=== PATIENT | female | born 1965 | race Caucasian/White ===

== ENCOUNTER 2021-05-24 12:06 | Emergency (ER) | payer SELFPAY ==
[~2021-05-24] VITALS: Ht 167.6 cm; Wt 70.3 kg
--- NOTE | 2021-05-24 12:06 | NUR ---
PT BIBA TO BED 04.
[2021-05-24 12:10] VITALS: BP 162/104
[2021-05-24] MEDS ORDERED: NACL 0.9% 1,000 ML IV ONE ×3 (12:15→14:10)
[2021-05-24] MEDS ORDERED: ACETAMINOPHEN EXTRA STRENGTH 500 MG TAB PO ONE (12:15)
[2021-05-24] MEDS ORDERED: FAMOTIDINE 20 MG TAB PO ONE (12:15)
[2021-05-24] MEDS ORDERED: ONDANSETRON 4 MG/2 ML VIAL IVP ONE ×2 (12:15→14:10)
--- NOTE | 2021-05-24 12:30 | NUR ---
MARITZAG COLLECTED AND HANDED TO FELIPE KELLY
--- NOTE | 2021-05-24 12:35 | NUR ---
BLOODWORK COLLECTED AND HANDED TO [employer]
--- NOTE | 2021-05-24 12:45 | NUR ---
56 y/o female, c/o nausea and vomiting with abd pain 10/10. pt states for past 2 days she has not taken her htn and dm2 medications. states she was celebrating birthday yesterday, alcohol use, no insulin use and was feeling dizzy. abomen is non-tender, but soft to touch. pt a&ox4 pmh: dm2, htn nka med: non complaint
--- NOTE | 2021-05-24 12:51 | NUR ---
patient daughter Pam [phone]
[2021-05-24 12:56] LABS: BASOPHILS # (AUTO) 0.1 K/uL (0.00-0.22); BASOPHILS % (AUTO) 0.6 % (0.0-2.0); EOSINOPHILS % (AUTO) 0.1 % (0.0-4.0); HEMATOCRIT 45.4 % (36-48); HEMOGLOBIN 15.8 g/dL (12.0-16.0); LYMPHOCYTES % (AUTO) 9.2 % (20.5-51.1); MEAN CORPUSCULAR HEMOGLOBIN 30 pg (27-31); MEAN CORPUSCULAR HGB CONC 35 g/dL (33-37); MEAN CORPUSCULAR VOLUME 87.3 fL (80-94); MONOCYTES # (AUTO) 0.3 K/uL (0.8-1.0); MONOCYTES % (AUTO) 2.9 % (1.7-9.3); NEUTROPHILS # (AUTO) 9.2 K/uL (1.8-7.7); NEUTROPHILS % (AUTO) 87.2 % (42.2-75.2); PLATELET COUNT (AUTO) 293 K/uL (140-450); RED CELL DISTRIBUTION WIDTH 12.9 % (11.6-13.7); WHITE BLOOD COUNT (AUTO) 10.6 K/uL (4.8-10.8)
[2021-05-24] MEDS ORDERED: ONDA-188 PO (13:57)
[2021-05-24] MEDS ORDERED: DICYCLOMINE HCL LIQUID 20 MG, ALUMINUM HYD/MAG/SIMETHICONE 30 ML, LIDOCAINE VISCOUS 2% ... PO ONE ×3 (14:10)
[2021-05-24] MEDS ORDERED: KETOROLAC 15 MG/ML VIAL IVP ONE (14:10)
[2021-05-24 14:35] LABS: ALBUMIN 3.4 g/dL (3.4-5.0); ANION GAP 12.1 (8-16); CARBON DIOXIDE 27.7 mmol/L (21-32); CREATININE 0.6 mg/dL (0.6-1.3); POTASSIUM 3.8 mmol/L (3.5-5.1); TOTAL BILIRUBIN 0.3 mg/dL (0.0-1.0)
[2021-05-24] MEDS ORDERED: ALUMINUM HYD/MAG/SIMETHICONE 30 ML UDC ONE (14:39)
[2021-05-24] MEDS ORDERED: DICYCLOMINE HCL LIQUID 10 MG/5 ML UDC ONE (14:39)
[2021-05-24] MEDS ORDERED: BLOOD GLUCOSE MONITORING 1 DEV DEV FS ONE (14:45)
[2021-05-24 15:03] VITALS: BP 124/70
--- NOTE | 2021-05-24 15:04 | NUR ---
Patient discharged with v/s stable. Written and verbal after care instructions given and explained. Patient verbalized understanding. Ambulatory with steady gait. All questions addressed prior to discharge. Advised to follow up with PMD.
== END 2021-05-24 15:04 | disposition home or self-care (01) ==
LOC: MED 12:06
DX: F10.929 Alcohol use, unspecified with intoxication, unspecified (principal); E11.65 Type 2 diabetes mellitus with hyperglycemia; R11.2 Nausea with vomiting, unspecified; I10 Essential (primary) hypertension; F17.210 Nicotine dependence, cigarettes, uncomplicated; Z79.899 Other long term (current) drug therapy
CPT/HCPCS: 36415; 80053; 82803; 83690; 85025; 96361; 96374; 96375; 96376; 99284; J1885; J2405; J7030